=== PATIENT | male | born 1960 | race African-American/Black ===

== ENCOUNTER 2017-08-06 07:45 | Inpatient (IN) | payer OTHER ==
[~2017-08-06] VITALS: Ht 182.9 cm
[~2017-08-06 07:45] MED LIST: CIPRO; EXTRA STRENGTH500 M1 PO; KEFLEX500 MG PO; METHADONE HCL40 MG PO; METHADONE10 MG/1 M1 PO; PERCOCET 5/31 TABLET PO; PYRIDIUM100 MG PO; TRAMADOL HCL50 MG PO; ULTRAM50 MG PO; ZOFRAN4 MG PO
[2017-08-06 09:01] LABS: BASOPHIL (%) 0 % (0-1); EOSINOPHIL COUNT 0.1 K/uL (0-0.3); HEMATOCRIT 40.8 % (38.0-50.0); HEMOGLOBIN 13.4 G/DL (12.5-16.6); IMMATURE GRANULOCYTE (%) 0.4 % (0.0-0.7); LYMPHOCYTE (%) 19.5 % (15-42); MCH 28.6 PG (29.0-34.0); MCHC 32.8 G/DL (30.0-36.0); MONOCYTE (%) 11.5 % (3-12); MONOCYTE COUNT 0.6 K/uL (0-0.8); NEUTROPHIL (%) 67.6 % (45-76); NEUTROPHIL COUNT 3.5 K/uL (1.8-6.4); PLATELET COUNT 140 K/uL (156-360); RBC DIS.WIDTH-CV 12.7 % (11.8-14.6); RBC DIS.WIDTH-SD 40.2 % (39-53); RED BLOOD COUNT 4.69 M/uL (4.00-5.50); WHITE BLOOD COUNT 5.2 K/uL (4.1-10.2)
[2017-08-06 09:19] LABS: CHLORIDE 97 mEq/L (99-109); POTASSIUM 3.8 mEq/L (3.7-5.4); SODIUM 133 mEq/L (136-147)
[2017-08-06 09:21] LABS: TROP-I INTERPRETATION NEGATIVE; TROPONIN-I < 0.01 ng/mL (0.0-0.30)
[2017-08-06 09:22] LABS: GLUCOSE 110 mg/dL (70-99); TOTAL PROTEIN 7.5 g/dL (6.4-8.3)
[2017-08-06 09:24] LABS: TOTAL BILIRUBIN 0.5 mg/dL (0.0-1.0)
[2017-08-06 09:25] LABS: ALKALINE PHOSPHATASE 109 IU/L (3-129); CREATININE 1.1 mg/dL (0.6-1.3); GFR ESTIMATE (CALCULATED) > 59 mL/min/ (58.99-99999)
[2017-08-06 09:26] LABS: UREA NITROGEN (BUN) 17 mg/dL (9-23)
[2017-08-06 09:27] LABS: AST (GOT) 21 IU/L (2-34)
[2017-08-06 09:28] LABS: ALT (GPT) 18 IU/L (3-49)
[2017-08-06] MEDS ORDERED: THERAFLU EXPRE1 EAC1 PO (14:11)
[2017-08-06 18:23] VITALS: BP 141/80
[2017-08-06 20:00] VITALS: BP 126/69; BP 131/69
[2017-08-06 23:24] VITALS: BP 126/64
[2017-08-07 04:15] VITALS: BP 130/68
[2017-08-07 05:59] LABS: HEMATOCRIT 38.6 % (38.0-50.0); HEMOGLOBIN 12.3 G/DL (12.5-16.6); MCH 27.6 PG (29.0-34.0); MCHC 31.9 G/DL (30.0-36.0); MCV 86.5 FL (86-99); PLATELET COUNT 126 K/uL (156-360); RBC DIS.WIDTH-CV 12.9 % (11.8-14.6); RBC DIS.WIDTH-SD 40.9 % (39-53); RED BLOOD COUNT 4.46 M/uL (4.00-5.50); WHITE BLOOD COUNT 3.7 K/uL (4.1-10.2)
[2017-08-07 06:19] LABS: CHLORIDE 97 MEQ/L (99-109); CREATININE 0.9 MG/DL (0.6-1.3); GFR ESTIMATE (CALCULATED) > 59 mL/min/ (58.99-99999); POTASSIUM 4.5 MEQ/L (3.7-5.4); SODIUM 133 MEQ/L (136-147); UREA NITROGEN (BUN) 18 mg/dL (9-23)
[2017-08-07 06:20] LABS: GLUCOSE 172 mg/dL (70-99)
[2017-08-07 07:17] LABS: HEMOGLOBIN A1c (GLYCOHEMOGLOB) 6.5 % HGB (Below 5.7)
[2017-08-07 09:16] VITALS: BP 126/66
[2017-08-07 11:21] VITALS: BP 135/68
[2017-08-07 15:02] VITALS: BP 125/58
[2017-08-07 19:57] VITALS: BP 121/60
[2017-08-07 23:50] VITALS: BP 137/73
[2017-08-08 03:46] VITALS: BP 141/73
[2017-08-08 05:39] LABS: BASOPHIL (%) 0 % (0-1); EOSINOPHIL (%) 0 % (0-5); HEMATOCRIT 37.8 % (38.0-50.0); HEMOGLOBIN 12.3 G/DL (12.5-16.6); IMMATURE GRANULOCYTE (%) 0.4 % (0.0-0.7); LYMPHOCYTE (%) 9.3 % (15-42); LYMPHOCYTE COUNT 0.6 K/uL (1.0-2.8); MCH 28.3 PG (29.0-34.0); MCHC 32.5 G/DL (30.0-36.0); MCV 87.1 FL (86-99); MONOCYTE (%) 4.1 % (3-12); MONOCYTE COUNT 0.3 K/uL (0-0.8); NEUTROPHIL (%) 86.2 % (45-76); NEUTROPHIL COUNT 5.8 K/uL (1.8-6.4); PLATELET COUNT 127 K/uL (156-360); RBC DIS.WIDTH-CV 12.8 % (11.8-14.6); RBC DIS.WIDTH-SD 41.1 % (39-53); RED BLOOD COUNT 4.34 M/uL (4.00-5.50); WHITE BLOOD COUNT 6.8 K/uL (4.1-10.2)
[2017-08-08 06:01] LABS: CHLORIDE 98 MEQ/L (99-109); CREATININE 0.9 MG/DL (0.6-1.3); GFR ESTIMATE (CALCULATED) > 59 mL/min/ (58.99-99999); GLUCOSE 129 mg/dL (70-99); POTASSIUM 4.9 MEQ/L (3.7-5.4); SODIUM 132 MEQ/L (136-147); UREA NITROGEN (BUN) 20 mg/dL (9-23)
[2017-08-08 08:27] VITALS: BP 161/83
[2017-08-08 11:42] VITALS: BP 138/70
[2017-08-08] MEDS ORDERED: AZITHROMYCIN500 M1 PO (14:43)
[2017-08-08] MEDS ORDERED: ADVAIR HFA120 INHALA IH (14:43)
[2017-08-08] MEDS ORDERED: VENTOLIN HFA18 GM IH (14:43)
[2017-08-08] MEDS ORDERED: PREDNISONE10 MG PO (14:43)
== END 2017-08-08 16:00 | disposition home or self-care (01) | DRG 190 ==
LOC: EME 07:45 → EDOF 11:31 → ENRESERV 11:48 → 4SOUTH 18:10
PROVIDERS: Internal Medicine; Physician Assistant; Student in an Organized Health Care Education/Training Program
DX: J44.1 Chronic obstructive pulmonary disease with (acute) exacerbation (principal); J96.01 Acute respiratory failure with hypoxia; F17.210 Nicotine dependence, cigarettes, uncomplicated; Z91.041 Radiographic dye allergy status; J20.9 Acute bronchitis, unspecified; J44.0 Chronic obstructive pulmonary disease with (acute) lower respiratory infection; Z83.3 Family history of diabetes mellitus; Z90.5 Acquired absence of kidney; Z85.528 Personal history of other malignant neoplasm of kidney; Z86.73 Personal history of transient ischemic attack (TIA), and cerebral infarction without residual deficits; Z87.442 Personal history of urinary calculi
CPT/HCPCS: 71046; 80048; 80053; 83036; 83605; 83880; 84484; 85025; 85027; 87040; 87502; 93005; 94640; 94640 76; 94644; 94799; 99202; 99281; 99285; C1753; J1650; J1956; J2930; J7120; J7512; J7644